=== PATIENT | female | born 1975 | race Caucasian/White ===

== ENCOUNTER → 2016-11-16 | Outpatient (CLI) | payer BC ==
[2016-11-16 20:52] LABS: ALBUMIN 3.9 GM/DL (3.2-5.2); ALBUMIN/GLOBULIN RATIO 1.15 (1.00-1.93); ALKALINE PHOSPHATASE 81 U/L (45-117); ALT/SGPT 38 U/L (12-78); ANION GAP 8 MEQ/L (8-16); AST/SGOT 21 U/L (15-37); BILIRUBIN,TOTAL 0.4 MG/DL (0.2-1.0); BLOOD UREA NITROGEN 12 MG/DL (7-18); CALCIUM LEVEL 8.8 MG/DL (8.5-10.1); CARBON DIOXIDE LEVEL 29 MEQ/L (21-32); CHLORIDE LEVEL 101 MEQ/L (98-107); GLOMERULAR FILTRATION RATE > 60.0 (>58); GLUCOSE, FASTING 135 MG/DL (70-105); POTASSIUM SERUM 3.9 MEQ/L (3.5-5.1); SODIUM LEVEL 138 MEQ/L (136-145); TOTAL PROTEIN 7.3 GM/DL (6.4-8.2)
[2016-11-16 21:05] LABS: BASO % 0.3 % (0.0-1.0); EOS # 0.1 K/mm3 (0.0-0.50); EOS % 1.1 % (0.0-3.0); LARGE UNSTAINED CELL # 0.1 K/mm3 (0.0-0.4); LARGE UNSTAINED CELL % 1.1 % (0.0-4.0); LYMPH # 1.6 K/mm3 (1.5-4.5); LYMPH % 15.5 % (24.0-44.0); MEAN CORPUSCULAR HEMOGLOBIN 28.3 pg (27.0-33.0); MEAN CORPUSCULAR HGB CONC 32.8 g/dl (32.0-36.5); MEAN CORPUSCULAR VOLUME 86.3 fl (80.0-96.0); MONO # 0.5 K/mm3 (0.0-0.8); NEUTROPHILS # 7.5 K/mm3 (1.8-7.7); PLATELET COUNT, AUTOMATED 267 k/mm3 (150-450); RED CELL DISTRIBUTION WIDTH 13.6 % (11.5-14.5); WHITE BLOOD COUNT 9.8 K/mm3 (4.0-10.0)
== END ==
LOC: M LAB 19:47
PROVIDERS: ATTEND Physician Assistant
DX: R42 Dizziness and giddiness (principal)

== ENCOUNTER → 2016-11-17 | Outpatient (CLI) | payer BC ==
--- NOTE | 2016-11-17 16:19 | REP ---
Chest x-ray: Two views. History: Acute upper respiratory infection . Comparison study: No comparison study . Findings: The lungs are well inflated and free of infiltrate. The pleural angles are sharp. The heart size is normal. Pulmonary vasculature is not increased. No significant bony abnormality is seen. Impression: Negative chest x-ray. Signed by Joby Gordon MD 11/17/2016 04:11 P
== END ==
LOC: M ADAMS 14:47
PROVIDERS: ATTEND Family Medicine
DX: J06.9 Acute upper respiratory infection, unspecified (principal)

== ENCOUNTER 2016-11-23 20:37 | Emergency (ER) | payer BC ==
[~2016-11-23] VITALS: Ht 157.5 cm; Wt 99.8 kg
[2016-11-23] MEDS ORDERED: DULO1CAP3 PO (20:48)
[2016-11-23] MEDS ORDERED: CHLO125TA PO (20:48)
[2016-11-23] MEDS ORDERED: RELP40TA PO (20:48)
[2016-11-23] MEDS ORDERED: ZYRT10CA PO (20:48)
--- NOTE | 2016-11-23 21:12 | ECGEPIP ---
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
[2016-11-23] MEDS ORDERED: LABETALOL HCL 100 MG/20 ML VIAL IV STA (21:22)
[2016-11-23] MEDS ORDERED: CHLORTHALIDONE 25 MG TAB PO ONE (21:30)
[2016-11-23] MEDS ORDERED: CHLORTHALIDONE 12.5MG PER 1/2 TABLET PO ONE (21:30)
[2016-11-23 21:52] VITALS: BP 150/101
[2016-11-23 21:56] LABS: BASO % 0.3 % (0.0-1.0); EOS # 0.1 K/mm3 (0.0-0.50); EOS % 0.8 % (0.0-3.0); LARGE UNSTAINED CELL # 0.1 K/mm3 (0.0-0.4); LARGE UNSTAINED CELL % 1.3 % (0.0-4.0); LYMPH # 1.3 K/mm3 (1.5-4.5); LYMPH % 14.2 % (24.0-44.0); MEAN CORPUSCULAR HGB CONC 34.1 g/dl (32.0-36.5); MEAN CORPUSCULAR VOLUME 85.2 fl (80.0-96.0); MONO # 0.4 K/mm3 (0.0-0.8); NEUTROPHILS # 6.6 K/mm3 (1.8-7.7); NEUTROPHILS % 78.4 % (36.0-66.0); PLATELET COUNT, AUTOMATED 271 k/mm3 (150-450); RED CELL DISTRIBUTION WIDTH 13.2 % (11.5-14.5); WHITE BLOOD COUNT 8.4 K/mm3 (4.0-10.0)
[2016-11-23 22:00] LABS: INR 0.97
[2016-11-23] MEDS ORDERED: ONDANSETRON 4MG/2ML VIAL (J2405) IV ONE (22:15)
[2016-11-23 22:21] LABS: ALBUMIN/GLOBULIN RATIO 1.33 (1.00-1.93); ALKALINE PHOSPHATASE 79 U/L (45-117); ALT/SGPT 47 U/L (12-78); ANION GAP 7 MEQ/L (8-16); AST/SGOT 23 U/L (15-37); BILIRUBIN,DIRECT 0.1 MG/DL (0.0-0.2); BILIRUBIN,TOTAL 0.5 MG/DL (0.2-1.0); BLOOD UREA NITROGEN 13 MG/DL (7-18); CALCIUM LEVEL 8.6 MG/DL (8.5-10.1); CARBON DIOXIDE LEVEL 30 MEQ/L (21-32); CHLORIDE LEVEL 104 MEQ/L (98-107); CREATININE FOR GFR 0.87 MG/DL (0.55-1.02); GLOMERULAR FILTRATION RATE > 60.0 (>58); GLUCOSE, FASTING 128 MG/DL (70-105); POTASSIUM SERUM 3.8 MEQ/L (3.5-5.1); SODIUM LEVEL 141 MEQ/L (136-145)
[2016-11-23] MEDS ORDERED: NS 1,000 ML IV SCH (22:54)
[2016-11-23] MEDS ORDERED: ISOVUE-370 76% 100ML VIAL (Q9967) As Ordered ONE (22:59)
[2016-11-23] MEDS ORDERED: ASPIRIN 81 MG CHEW TABLET PO ONE (23:00)
--- NOTE | 2016-11-23 23:20 | REPUSA ---
CT of the head Clinical history: Headache. Technique: Multiple axial CT images were obtained through the head without administration of contrast . Comparison: 02/15/2010. Findings: The ventricles and sulci are symmetric bilaterally. There is no evidence of acute hemorrhag e or infarct. There is no midline shift, mass effect, or extra-axial fluid collection. The osseous st ructures are unremarkable. The visualized paranasal sinuses and mastoid air cells are clear. Impression: Negative study.
--- NOTE | 2016-11-23 23:30 | REPUSA ---
CT angiogram of the chest Clinical statement: Chest pain and shortness of breath. Technique: Multiple axial CT images were obtained from the thoracic inlet through the upper abdomen a fter a bolus administration of nonionic intravenous contrast. Coronal and sagittal reconstructions we re also obtained. No comparison is available. Findings: The pulmonary arteries are well-opacified with contrast, with no intraluminal filling defec ts to suggest embolism. The thoracic aorta is unremarkable. Thyroid gland is within normal limits. Th ere is no thoracic lymphadenopathy. There are no pericardial or pleural effusions. The lungs are junior r. Limited imaging of the upper abdomen does not demonstrate any acute abnormalities. There is diffus e low attenuation in the hepatic parenchyma. There are no suspicious osseous lesions. Impression: Unremarkable CT examination of the chest. No evidence of pulmonary embolism.
[2016-11-24] MEDS ORDERED: ACETAMINOPHEN 325 MG TAB PO ONE (02:45)
[2016-11-24 03:06] VITALS: BP 131/78
--- NOTE | 2016-11-24 05:57 | ECGEPIP ---
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
--- NOTE | 2016-11-24 08:03 | REP ---
Clinical: Chest pain . Comparison: 12/08 . Technique: PA and lateral. Findings: The mediastinum and cardiac silhouette are normal. The lung loco are clear and without acute consolidation, effusion, or pneumothorax. The skeletal structures are intact and normal. Impression: 1. No acute cardiopulmonary process. Signed by Kvng Cole MD 11/24/2016 07:54 A
== END 2016-11-24 04:23 | disposition home or self-care (01) ==
LOC: M ED 21:39
DX: R07.9 Chest pain, unspecified (principal); I10 Essential (primary) hypertension; Q05.9 Spina bifida, unspecified; M54.5 Low back pain; Z79.899 Other long term (current) drug therapy; Z87.891 Personal history of nicotine dependence; Z86.32 Personal history of gestational diabetes
CPT/HCPCS: 36415; 70450; 71020; 71275; 80048; 80076; 82550; 82553; 83690; 83880; 85025; 85610; 85730; 93005; 93041; 94760; 96374; 96375; 99285; J2405; Q9967

== ENCOUNTER → 2017-05-23 | Outpatient (CLI) | payer BC ==
[~2017-05-23] MED LIST: CHLO125TA PO; DULO1CAP3 PO; RELP40TA PO; ZYRT10CA PO
--- NOTE | 2017-05-23 12:12 | REP ---
LEFT KNEE SERIES: Five views. HISTORY: Contusion. FINDINGS: Five views of the left knee demonstrate normal bones, joints, and soft tissues. IMPRESSION: Negative left knee radiographs. Signed by Joby Gordon MD 05/23/2017 05:22 P
== END ==
LOC: M WUC 11:08
PROVIDERS: ATTEND Physician Assistant
DX: S80.02XA Contusion of left knee, initial encounter (principal); W18.30XA Fall on same level, unspecified, initial encounter; Y92.009 Unspecified place in unspecified non-institutional (private) residence as the place of occurrence of the external cause

== ENCOUNTER → 2017-08-01 | Outpatient (CLI) | payer BC ==
--- NOTE | 2017-08-01 16:17 | REP ---
Clinical: Chest pain . Comparison: 11/23/2016 . Technique: PA and lateral. Findings: The mediastinum and cardiac silhouette are normal. The lung loco are clear and without acute consolidation, effusion, or pneumothorax. The skeletal structures are intact and normal. Impression: 1. No acute cardiopulmonary process. Signed by Kvng Cole MD 08/01/2017 04:08 P
== END ==
LOC: M ADAMS 15:13
PROVIDERS: ATTEND Family Medicine
DX: I10 Essential (primary) hypertension (principal); G47.10 Hypersomnia, unspecified; R06.2 Wheezing

== ENCOUNTER → 2017-08-01 | Outpatient (REF) | payer BC ==
[2017-08-01 19:52] LABS: MEAN CORPUSCULAR HGB CONC 32.6 g/dl (32.0-36.5); MEAN CORPUSCULAR VOLUME 85.8 fl (80.0-96.0); PLATELET COUNT, AUTOMATED 306 10^3/uL (150-450); RED CELL DISTRIBUTION WIDTH 13.4 % (11.5-14.5); WHITE BLOOD COUNT 8.5 10^3/uL (4.0-10.0)
[2017-08-01 20:24] LABS: ALBUMIN 3.9 GM/DL (3.2-5.2); ALBUMIN/GLOBULIN RATIO 1.15 (1.00-1.93); BILIRUBIN,TOTAL 0.3 MG/DL (0.2-1.0); CALCIUM LEVEL 9.3 MG/DL (8.5-10.1); CREATININE FOR GFR 1.09 MG/DL (0.55-1.02); FREE T4 0.79 NG/DL (0.76-1.46); GLOMERULAR FILTRATION RATE 58.9 (>58); POTASSIUM SERUM 3.4 MEQ/L (3.5-5.1); TOTAL PROTEIN 7.3 GM/DL (6.4-8.2)
[2017-08-01 20:27] LABS: FOLATE 19.2 NG/ML (>5.4)
== END ==
LOC: M SFHCADAM 15:06
PROVIDERS: ATTEND Family Medicine
DX: G47.10 Hypersomnia, unspecified (principal); E55.9 Vitamin D deficiency, unspecified; I10 Essential (primary) hypertension

== ENCOUNTER 2017-12-21 08:50 | Emergency (ER) | payer BC ==
[2017-12-21] MEDS: diphenhydrAMINE INJ 50MG/ML VIAL (J1200) IV (09:21)
[2017-12-21] MEDS: METOCLOPRAMIDE INJ 10MG/2ML VIAL (J2765) IV (09:30)
[2017-12-21] MEDS: NS 1,000 ML IV (09:30)
[2017-12-21] MEDS: KETOROLAC 30 MG/ML VIAL (J1885) IV (09:30)
[2017-12-21 09:47] LABS: BASO % 0.5 % (0.0-1.0); EOS # 0.1 10^3/uL (0.0-0.50); EOS % 1.5 % (0.0-3.0); HEMATOCRIT 46.6 % (36.0-47.0); HEMOGLOBIN 16.2 g/dl (12.0-15.5); IMMATURE GRANULOCYTE % 0.2 % (0-3.0); LYMPH # 1.5 10^3/uL (1.5-4.5); LYMPH % 16.7 % (24.0-44.0); MEAN CORPUSCULAR HEMOGLOBIN 28.9 pg (27.0-33.0); MEAN CORPUSCULAR HGB CONC 34.8 g/dl (32.0-36.5); MEAN CORPUSCULAR VOLUME 83.1 fl (80.0-96.0); MONO # 0.6 10^3/uL (0.0-0.8); MONO % 6.4 % (0.0-5.0); NEUTROPHILS # 6.6 10^3/uL (1.8-7.7); NEUTROPHILS % 74.7 % (36.0-66.0); PLATELET COUNT, AUTOMATED 314 10^3/uL (150-450); RED BLOOD COUNT 5.61 10^6/uL (4.00-5.40); RED CELL DISTRIBUTION WIDTH 13.6 % (11.5-14.5); WHITE BLOOD COUNT 8.8 10^3/uL (4.0-10.0)
[2017-12-21 10:08] LABS: ANION GAP 9 MEQ/L (8-16); BLOOD UREA NITROGEN 13 MG/DL (7-18); CALCIUM LEVEL 9.3 MG/DL (8.5-10.1); CARBON DIOXIDE LEVEL 26 MEQ/L (21-32); CHLORIDE LEVEL 103 MEQ/L (98-107); CREATININE FOR GFR 1.02 MG/DL (0.55-1.30); GLOMERULAR FILTRATION RATE > 60.0 (>58); GLUCOSE, FASTING 121 MG/DL (70-100); POTASSIUM SERUM 3.4 MEQ/L (3.5-5.1); SODIUM LEVEL 138 MEQ/L (136-145)
[2017-12-21 10:21] LABS: INFLUENZA A AMPLIFICATION NEGATIVE (NEGATIVE); INFLUENZA B AMPLIFICATION NEGATIVE (NEGATIVE)
[2017-12-21] MEDS: ACETAMINOPHEN 325 MG TAB PO (10:30)
[2017-12-21] MEDS: ONDANSETRON 4 MG ORAL DISINTEGRATING TAB (Q0162 PER 1MG) PO (10:30)
== END 2017-12-21 11:24 | disposition home or self-care (01) ==
LOC: M ED 08:50
DX: G44.209 Tension-type headache, unspecified, not intractable (principal); B34.9 Viral infection, unspecified; E11.9 Type 2 diabetes mellitus without complications; I10 Essential (primary) hypertension; G43.709 Chronic migraine without aura, not intractable, without status migrainosus; Z87.891 Personal history of nicotine dependence; Z79.899 Other long term (current) drug therapy
CPT/HCPCS: J1200

== ENCOUNTER → 2018-01-09 | Outpatient (REF) | payer BC ==
[2018-01-09 13:36] LABS: BASO % 0.5 % (0.0-1.0); EOS # 0.2 10^3/uL (0.0-0.50); EOS % 2.7 % (0.0-3.0); HEMATOCRIT 45.2 % (36.0-47.0); IMMATURE GRANULOCYTE % 0.3 % (0-3.0); LYMPH # 1.5 10^3/uL (1.5-4.5); LYMPH % 23.2 % (24.0-44.0); MEAN CORPUSCULAR HEMOGLOBIN 28.5 pg (27.0-33.0); MEAN CORPUSCULAR HGB CONC 33.2 g/dl (32.0-36.5); MEAN CORPUSCULAR VOLUME 85.8 fl (80.0-96.0); MONO # 0.4 10^3/uL (0.0-0.8); NEUTROPHILS # 4.2 10^3/uL (1.8-7.7); NEUTROPHILS % 66.3 % (36.0-66.0); PLATELET COUNT, AUTOMATED 318 10^3/uL (150-450); RED BLOOD COUNT 5.27 10^6/uL (4.00-5.40); RED CELL DISTRIBUTION WIDTH 13.5 % (11.5-14.5); WHITE BLOOD COUNT 6.3 10^3/uL (4.0-10.0)
[2018-01-09 14:05] LABS: ERYTHROCYTE SEDIMENTATION RATE 5 mm/hr (0-20)
[2018-01-09 14:25] LABS: ALBUMIN 4.3 GM/DL (3.2-5.2); ALKALINE PHOSPHATASE 82 U/L (45-117); ALT/SGPT 49 U/L (12-78); ANION GAP 5 MEQ/L (8-16); AST/SGOT 27 U/L (7-37); BILIRUBIN,TOTAL 0.3 MG/DL (0.2-1.0); BLOOD UREA NITROGEN 15 MG/DL (7-18); CALCIUM LEVEL 9.4 MG/DL (8.5-10.1); CARBON DIOXIDE LEVEL 31 MEQ/L (21-32); CHLORIDE LEVEL 102 MEQ/L (98-107); GLOMERULAR FILTRATION RATE > 60.0 (>58); GLUCOSE, FASTING 101 MG/DL (70-100); POTASSIUM SERUM 3.4 MEQ/L (3.5-5.1); RHEUMATOID FACTOR QUANT < 10.0 IU/ML (<15.0); SODIUM LEVEL 138 MEQ/L (136-145); TOTAL PROTEIN 7.6 GM/DL (6.4-8.2)
[2018-01-10 14:15] LABS: ANTINUCLEAR ANTIBODIES DIRECT Negative (Negative)
== END ==
LOC: M LABNEURO 09:45
DX: R51 Headache (principal)
CPT/HCPCS: 84443

== ENCOUNTER → 2018-01-17 | Outpatient (CLI) | payer BC | LOC: M SLEEP 19:29 | DX: G47.30 Sleep apnea, unspecified (principal) | CPT/HCPCS: 95810 ==

== ENCOUNTER → 2018-08-02 | Outpatient (CLI) | payer BC ==
[~2018-08-02] MED LIST changes: -CHLO125TA PO; -DULO1CAP3 PO; +PROHANCE 279.3MG/ML 15ML VIAL (A9576) As Ordered; +PROHANCE 279.3MG/ML 5ML VIAL (A9576) As Ordered; -RELP40TA PO; -ZYRT10CA PO
== END ==
LOC: M RAD 13:45
DX: D21.12 Benign neoplasm of connective and other soft tissue of left upper limb, including shoulder (principal)
CPT/HCPCS: A9576

== ENCOUNTER → 2018-09-12 | Outpatient (REF) | payer BC ==
[~2018-09-12] MED LIST changes: +CBD Oil SL; +CHLO125TA PO; +DULO1CAP3 PO; -PROHANCE 279.3MG/ML 15ML VIAL (A9576) As Ordered; -PROHANCE 279.3MG/ML 5ML VIAL (A9576) As Ordered; +RELP40TA PO; +VITA200016 PO; +VITA50005 PO; +ZYRT10CA PO
[2018-09-12 19:55] LABS: HEMOGLOBIN 15.2 g/dl (12.0-15.5); MEAN CORPUSCULAR HEMOGLOBIN 28.4 pg (27.0-33.0); MEAN CORPUSCULAR HGB CONC 32.3 g/dl (32.0-36.5); MEAN CORPUSCULAR VOLUME 87.9 fl (80.0-96.0); PLATELET COUNT, AUTOMATED 324 10^3/uL (150-450); RED BLOOD COUNT 5.35 10^6/uL (4.00-5.40); WHITE BLOOD COUNT 8.2 10^3/uL (4.0-10.0)
[2018-09-12 20:09] LABS: ALBUMIN 3.9 GM/DL (3.2-5.2); ALT/SGPT 45 U/L (12-78); BILIRUBIN,TOTAL 0.3 MG/DL (0.2-1.0); BLOOD UREA NITROGEN 11 MG/DL (7-18); CALCIUM LEVEL 8.8 MG/DL (8.5-10.1); CARBON DIOXIDE LEVEL 30 MEQ/L (21-32); CHLORIDE LEVEL 101 MEQ/L (98-107); CREATININE FOR GFR 0.77 MG/DL (0.55-1.30); FREE T4 0.87 NG/DL (0.76-1.46); GLOMERULAR FILTRATION RATE > 60.0 (>58); GLUCOSE, FASTING 104 MG/DL (70-100); POTASSIUM SERUM 3.9 MEQ/L (3.5-5.1); SODIUM LEVEL 140 MEQ/L (136-145); TOTAL 25(OH) VITAMIN D 21.1 NG/ML (30.0-100.0); TOTAL PROTEIN 7.6 GM/DL (6.4-8.2)
== END ==
LOC: M SFHCADAM 16:21
PROVIDERS: ATTEND Family Medicine
DX: G43.009 Migraine without aura, not intractable, without status migrainosus (principal); F32.89 Other specified depressive episodes; E55.9 Vitamin D deficiency, unspecified; I10 Essential (primary) hypertension

== ENCOUNTER → 2018-11-02 | Outpatient (REF) | payer BC ==
[~2018-11-02] MED LIST changes: +ADVA115A INH; +MIRE1IUD IU; +PROAAER10 INH; +TOPA50TA8 PO; +VITA100067 PO
== END ==
LOC: M LAB REF 11:27
PROVIDERS: ATTEND Physician Assistant
DX: N39.0 Urinary tract infection, site not specified (principal)

== ENCOUNTER 2018-11-11 06:00 | Day surgery (SDC) | payer BC ==
[~2018-11-11] VITALS: Ht 157.5 cm; Wt 96.6 kg
[~2018-11-11 06:00] MED LIST changes: +LIDOCAINE W/EPINEPHRINE 1% 20ML VIAL As Ordered ONE; +ceFAZolin SOD 1 GM in D5W MINI-BAG PLUS 50 ML IV SCH
[2018-11-11] MEDS ORDERED: IBUP200C25 PO (06:32)
[2018-11-11 06:39] LABS: URINE PREG TEST NEGATIVE (NEGATIVE)
[2018-11-11] MEDS ORDERED: LR 1,000 ML IV ONE (07:00)
[2018-11-11] MEDS ORDERED: PROPOFOL 200 MG/20 ML VIAL As Ordered ONE ×3 (07:08→08:06)
[2018-11-11] MEDS ORDERED: LIDOCAINE 2% INJ 100 MG/5 ML SDV (FOR ANES.) As Ordered ONE (07:08)
[2018-11-11] MEDS ORDERED: fentaNYL 100 MCG/2 ML INJECTION (J3010) As Ordered ONE (07:08)
[2018-11-11] MEDS ORDERED: MIDAZOLAM INJ 2 MG/2 ML VIAL (J2250) As Ordered ONE (07:08)
--- NOTE | 2018-11-11 08:21 | POST-OPPD ---
Postoperative Procedure Note Date Of Procedure: Nov 11, 2018 PREOPERATIVE DIAGNOSIS: Left upper arm mass POSTOPERATIVE DIAGNOSIS: same FINDINGS: left upper arm mass 3x2.5cm PROCEDURE: Excision Left upper arm mass SURGEON: Dr Rogers ANESTHESIA: Local with sedation SPECIMENS: Left upper arm mass ESTIMATED BLOOD LOSS: 2cc REPLACED: none DRAINS: none COMPLICATIONS: none POSTOPERATIVE CONDITION: stable JALEEL ROGERS DO Nov 11, 2018 08:21
[2018-11-11] MEDS ORDERED: ACET30TAB PO (08:23)
[2018-11-11 08:26] VITALS: BP_DIAS 66
[2018-11-11 09:10] VITALS: BP_SYST 115
--- NOTE | 2018-11-12 14:20 | RO ---
DATE OF OPERATION: 11/11/2018 PREOPERATIVE DIAGNOSIS: Left upper arm mass. POSTOPERATIVE DIAGNOSIS: Left upper arm mass. PROCEDURE: Excision left upper arm mass. ATTENDING SURGEON: Lyssa Caballero DO ANESTHESIA: Local with sedation. SPECIMENS: Left upper arm mass. BLOOD LOSS: 2 mL. FINDINGS: Left upper arm mass 3 x 2.5 cm. DESCRIPTION OF PROCEDURE: This is a 43-year-old female who was seen in our office complaining of some fullness and a mass that she was feeling in her left upper arm. The studies do not confirm any masses visible; however, on exam, you could identify a hardening area in deep tissues, which measures about 3 x 2 cm by feel. So, patient was scheduled for exploration of the left upper arm and possible mass removal. Risks and benefits and alternatives discussed with the patient. She is ready to proceed. In preoperative holding area, informed consent was confirmed and the mass was, again, palpated and outlined, and then patient was brought into the operating room, placed in supine position. Sequential stockings placed on the lower calves and preoperative antibiotics were given. She was prepped and draped in the usual sterile fashion. Sedation was given to the patient, and then 1% lidocaine with epinephrine 8 mL was infiltrated in the area. After the local anesthesia had taken place, a vertical incision was carried out and then careful blunt dissection was done until we palpated the mass which looked like a well-encapsulated fatty fibrinous mass, which was white in color, fully encapsulated. We did not invade the mass and just excised it in all entirety. It was sitting right on top of deltoid muscle, not attached to it. The mass was sent to pathology. It was re-measured, and it is 3 x 2.5 cm. The wound was irrigated with bacitracin irrigation. Hemostasis was obtained using electrocautery, and then wound was closed in layers with interrupted #3-0 Vicryl sutures and #4-0 Monocryl sutures as well. The length of the incision was 3 cm in the longest measure. Steri-Strips were applied, 4 x 4 nonocclusive dressing. Patient tolerated procedure well. She was transferred to the recovery room in stable condition. JOSEFINA
== END 2018-11-11 09:13 | disposition home or self-care (01) ==
LOC: M SDC 06:00
PROVIDERS: ATTEND Plastic Surgery Surgery of the Hand
DX: D17.21 Benign lipomatous neoplasm of skin and subcutaneous tissue of right arm (principal); G47.30 Sleep apnea, unspecified; I10 Essential (primary) hypertension; J45.909 Unspecified asthma, uncomplicated; Z79.51 Long term (current) use of inhaled steroids; Z79.899 Other long term (current) drug therapy
CPT/HCPCS: 11404; 84703; 88307; J0690; J2250; J3010

== ENCOUNTER → 2018-11-24 | Outpatient (REF) | payer BC ==
[~2018-11-24] MED LIST changes: +ACET30TAB PO; +IBUP200C25 PO; -LIDOCAINE W/EPINEPHRINE 1% 20ML VIAL As Ordered ONE; -ceFAZolin SOD 1 GM in D5W MINI-BAG PLUS 50 ML IV SCH
== END ==
LOC: M LAB REF 12:48
PROVIDERS: ATTEND Physician Assistant
DX: R30.0 Dysuria (principal)

== ENCOUNTER → 2020-01-16 | Outpatient (CLI) | payer BC ==
[~2020-01-16] MED LIST changes: +ACET-716 PO; -ACET30TAB PO; -DULO1CAP3 PO; +DULO1CAP6 PO
[2020-01-16 15:46] LABS: HEMOGLOBIN 15.5 g/dl (12.0-15.5); MEAN CORPUSCULAR HEMOGLOBIN 28.6 pg (27.0-33.0); MEAN CORPUSCULAR HGB CONC 33.7 g/dl (32.0-36.5); MEAN CORPUSCULAR VOLUME 84.9 fl (80.0-96.0); PLATELET COUNT, AUTOMATED 299 10^3/uL (150-450); RED BLOOD COUNT 5.42 10^6/uL (4.00-5.40); WHITE BLOOD COUNT 7.3 10^3/uL (4.0-10.0)
[2020-01-16 16:09] LABS: HEMOGLOBIN A1c 10.5 %
[2020-01-16 16:18] LABS: ACETONE/KETONE 3.37 MG/DL (<2.81); ALT/SGPT 135 U/L (12-78); BILIRUBIN,TOTAL 0.7 MG/DL (0.2-1.0); BLOOD UREA NITROGEN 11 MG/DL (7-18); CALCIUM LEVEL 9.3 MG/DL (8.5-10.1); CARBON DIOXIDE LEVEL 28 MEQ/L (21-32); CHLORIDE LEVEL 96 MEQ/L (98-107); CREATININE FOR GFR 0.89 MG/DL (0.55-1.30); GLOMERULAR FILTRATION RATE > 60.0 (>58); GLUCOSE, FASTING 289 MG/DL (70-100); POTASSIUM SERUM 3.6 MEQ/L (3.5-5.1); SODIUM LEVEL 132 MEQ/L (136-145); TOTAL PROTEIN 7.7 GM/DL (6.4-8.2)
[2020-01-24 08:06] LABS: C-PEPTIDE 5.8 ng/mL (1.1-4.4); INSULIN ANTIBODY <5.0 uU/mL (.)
== END ==
LOC: M LAB 15:11
PROVIDERS: ATTEND Family Medicine
DX: R73.9 Hyperglycemia, unspecified (principal); R53.83 Other fatigue

== ENCOUNTER → 2020-07-08 | Outpatient (REF) | payer OTHER ==
[2020-07-08 17:48] LABS: ALBUMIN 3.8 GM/DL (3.2-5.2); BILIRUBIN,TOTAL 0.4 MG/DL (0.2-1.0); CALCIUM LEVEL 9.5 MG/DL (8.5-10.1); CREATININE FOR GFR 1.28 MG/DL (0.55-1.30); GLOMERULAR FILTRATION RATE 48.2 (>58); HEMOGLOBIN A1c 5.7 %; POTASSIUM SERUM 3.5 MEQ/L (3.5-5.1); TOTAL PROTEIN 7.2 GM/DL (6.4-8.2)
[2020-07-08 17:55] LABS: MALB URINE SIEMENS 6.7 MG/L; MAU/CREAT RATIO 3.8 MCG/MG (0.0-30.0)
[2020-07-08 17:56] LABS: TOTAL 25(OH) VITAMIN D 44.2 NG/ML (30.0-100.0)
== END ==
LOC: M SFHCADAM 13:30
PROVIDERS: ATTEND Family Medicine
DX: E11.65 Type 2 diabetes mellitus with hyperglycemia (principal); E55.9 Vitamin D deficiency, unspecified

== ENCOUNTER → 2021-02-03 | Outpatient (CLI) | payer OTHER ==
--- NOTE | 2021-02-03 09:56 | REP ---
INDICATION: RADICULOPATHY COMPARISON: 08/10/2014 TECHNIQUE: AP, lateral, bilateral oblique, and coned-down views of the lumbar spine. FINDINGS: Alignment and lordosis maintained. Vertebral bodies are intact. Incidental limbus vertebra at L4 again noted. Disc spaces are relatively normal/age-appropriate. No acute fracture/compression injury or subluxation. No obvious spondylolysis or spondylolisthesis.. IMPRESSION: Essentially normal age-appropriate lumbosacral spine series. <Electronically signed by Kvng Cole > 02/03/21 [id number]
== END ==
LOC: M WUC 09:15
PROVIDERS: ATTEND Physician Assistant
DX: M54.16 Radiculopathy, lumbar region (principal)

== ENCOUNTER → 2021-03-31 | Outpatient (CLI) | payer OTHER ==
[2021-03-31 17:34] LABS: BASO # 0.1 10^3/uL (0.0-0.2); BASO % 0.7 % (0.0-1.0); EOS # 0.3 10^3/uL (0.0-0.5); EOS % 3.3 % (0.0-3.0); HEMATOCRIT 43.7 % (36.0-47.0); HEMOGLOBIN 14.3 g/dl (12.0-15.5); LYMPH # 2.1 10^3/uL (1.5-5.0); LYMPH % 25.7 % (24.0-44.0); MEAN CORPUSCULAR HEMOGLOBIN 28.2 pg (27.0-33.0); MEAN CORPUSCULAR HGB CONC 32.7 g/dl (32.0-36.5); MEAN CORPUSCULAR VOLUME 86.2 fl (80.0-96.0); MONO # 0.6 10^3/uL (0.0-0.8); MONO % 6.8 % (2.0-8.0); NEUTROPHILS # 5.1 10^3/uL (1.5-8.5); NEUTROPHILS % 63.1 % (36.0-66.0); PLATELET COUNT, AUTOMATED 332 10^3/uL (150-450); RED BLOOD COUNT 5.07 10^6/uL (4.00-5.40); WHITE BLOOD COUNT 8.1 10^3/uL (4.0-10.0)
[2021-03-31 18:11] LABS: ALT/SGPT 31 U/L (12-78); BILIRUBIN,TOTAL 0.4 MG/DL (0.2-1.0); BLOOD UREA NITROGEN 15 MG/DL (7-18); C REACTIVE PROTEIN QUANTITATIV 1.45 MG/DL (0.00-0.30); CALCIUM LEVEL 9.3 MG/DL (8.5-10.1); CARBON DIOXIDE LEVEL 32 MEQ/L (21-32); CHLORIDE LEVEL 103 MEQ/L (98-107); CREATININE FOR GFR 0.99 MG/DL (0.55-1.30); GLOMERULAR FILTRATION RATE > 60.0 (>58); GLUCOSE, FASTING 140 MG/DL (70-100); POTASSIUM SERUM 3.2 MEQ/L (3.5-5.1); SODIUM LEVEL 139 MEQ/L (136-145)
[2021-03-31 19:21] LABS: ERYTHROCYTE SEDIMENTATION RATE 21 mm/hr (0-20)
== END ==
LOC: M PLALAB 15:39
PROVIDERS: ATTEND Physician Assistant
DX: R22.2 Localized swelling, mass and lump, trunk (principal)

== ENCOUNTER → 2021-04-18 | Outpatient (CLI) | payer OTHER ==
[2021-04-18 10:28] LABS: ALBUMIN 3.9 GM/DL (3.2-5.2); BLOOD UREA NITROGEN 15 MG/DL (7-18); CALCIUM LEVEL 9.2 MG/DL (8.5-10.1); CARBON DIOXIDE LEVEL 30 MEQ/L (21-32); CHLORIDE LEVEL 104 MEQ/L (98-107); CREATININE FOR GFR 0.99 MG/DL (0.55-1.30); GLOMERULAR FILTRATION RATE > 60.0 (>58); GLUCOSE, FASTING 107 MG/DL (70-100); PHOSPHORUS LEVEL 3.1 MG/DL (2.5-4.9); POTASSIUM SERUM 3.1 MEQ/L (3.5-5.1); SODIUM LEVEL 139 MEQ/L (136-145)
[2021-04-18 11:03] LABS: HEMOGLOBIN A1c 6.5 %
== END ==
LOC: M WUC 08:35
PROVIDERS: ATTEND Physician Assistant
DX: E11.9 Type 2 diabetes mellitus without complications (principal); E87.6 Hypokalemia

== ENCOUNTER → 2021-04-19 | Outpatient (CLI) | payer OTHER ==
--- NOTE | 2021-04-19 08:46 | REP ---
INDICATION: LOCALIZED SWELLING, MASS AND LUMP, TRUNK COMPARISON: None. TECHNIQUE: Directed grayscale B-mode ultrasound examination using linear high-frequency transducer. FINDINGS: Directed ultrasound examination of the left and right supraclavicular region demonstrates normal soft tissue structures. No obvious mass lesion, abnormality, or fluid collection noted by ultrasound. IMPRESSION: Unremarkable examination. <Electronically signed by Kvng Cole > 04/19/21 0884
== END ==
LOC: M RAD 07:30
PROVIDERS: ATTEND Physician Assistant
DX: R22.2 Localized swelling, mass and lump, trunk (principal)

== ENCOUNTER → 2021-04-25 | Outpatient (REF) | payer OTHER | LOC: M SFHCPLAZ 10:07 | PROVIDERS: ATTEND Physician Assistant Medical | DX: N90.89 Other specified noninflammatory disorders of vulva and perineum (principal) ==

== ENCOUNTER → 2021-07-08 | Outpatient (REF) | payer OTHER ==
[2021-07-08 12:55] LABS: BLOOD UREA NITROGEN 17 MG/DL (7-18); CALCIUM LEVEL 9.2 MG/DL (8.5-10.1); CARBON DIOXIDE LEVEL 31 MEQ/L (21-32); CHLORIDE LEVEL 105 MEQ/L (98-107); CREATININE FOR GFR 0.96 MG/DL (0.55-1.30); GLOMERULAR FILTRATION RATE > 60.0 (>58); GLUCOSE, FASTING 164 MG/DL (70-100); POTASSIUM SERUM 3.4 MEQ/L (3.5-5.1); SODIUM LEVEL 141 MEQ/L (136-145)
[2021-07-08 13:04] LABS: TOTAL 25(OH) VITAMIN D 68.3 NG/ML (30.0-100.0)
[2021-07-08 13:29] LABS: MALB URINE SIEMENS 7.5 MG/L; MAU/CREAT RATIO 4.6 MCG/MG (0.0-30.0)
[2021-07-08 13:36] LABS: HEMOGLOBIN A1c 5.9 %
== END ==
LOC: M SFHCADAM 09:12
PROVIDERS: ATTEND Family Medicine
DX: E87.6 Hypokalemia (principal); E55.9 Vitamin D deficiency, unspecified; E11.9 Type 2 diabetes mellitus without complications

== ENCOUNTER → 2021-08-31 | Outpatient (REF) | payer OTHER | LOC: M SFHCPLAZ 16:43 | PROVIDERS: ATTEND Physician Assistant | DX: R50.9 Fever, unspecified (principal) ==

== ENCOUNTER 2021-09-29 09:51 | Emergency (ER) | payer OTHER ==
[~2021-09-29] VITALS: Ht 162.6 cm; Wt 91.7 kg
[2021-09-29 09:52] VITALS: BP 143/96
[2021-09-29] MEDS ORDERED: DULA3PEN (09:58)
[2021-09-29] MEDS ORDERED: NS 1,000 ML IV ONE (14:55)
[2021-09-29] MEDS ORDERED: ONDANSETRON 4MG/2ML VIAL IV ONE (14:55)
[2021-09-29 16:23] LABS: BASO % 0.4 % (0.0-1.0); EOS # 0.3 10^3/uL (0.0-0.5); EOS % 3.3 % (0.0-3.0); HEMATOCRIT 44.7 % (36.0-47.0); HEMOGLOBIN 14.7 g/dl (12.0-15.5); LYMPH # 1.7 10^3/uL (1.5-5.0); LYMPH % 21.1 % (24.0-44.0); MEAN CORPUSCULAR HEMOGLOBIN 27.8 pg (27.0-33.0); MEAN CORPUSCULAR HGB CONC 32.9 g/dl (32.0-36.5); MEAN CORPUSCULAR VOLUME 84.5 fl (80.0-96.0); MONO # 0.6 10^3/uL (0.0-0.8); MONO % 6.9 % (2.0-8.0); NEUTROPHILS # 5.4 10^3/uL (1.5-8.5); NEUTROPHILS % 67.9 % (36.0-66.0); PLATELET COUNT, AUTOMATED 364 10^3/uL (150-450); RED BLOOD COUNT 5.29 10^6/uL (4.00-5.40)
[2021-09-29 16:54] LABS: ALBUMIN 3.6 GM/DL (3.2-5.2); ALT/SGPT 24 U/L (12-78); BILIRUBIN,DIRECT 0.1 MG/DL (0.0-0.2); BILIRUBIN,TOTAL 0.3 MG/DL (0.2-1.0); BLOOD UREA NITROGEN 12 MG/DL (7-18); CALCIUM LEVEL 9.2 MG/DL (8.5-10.1); CARBON DIOXIDE LEVEL 29 MEQ/L (21-32); CHLORIDE LEVEL 104 MEQ/L (98-107); CREATININE FOR GFR 0.83 MG/DL (0.55-1.30); GLOMERULAR FILTRATION RATE > 60.0 (>58); GLUCOSE, FASTING 108 MG/DL (70-100); HCG, SERUM QUALITATIVE NEGATIVE (NEGATIVE); LIPASE 208 U/L (73-393); POTASSIUM SERUM 3.4 MEQ/L (3.5-5.1); SODIUM LEVEL 138 MEQ/L (136-145); TOTAL PROTEIN 6.7 GM/DL (6.4-8.2)
[2021-09-29] MEDS ORDERED: ONDA4TAB6 PO (17:26)
[2021-09-29 18:27] LABS: GC DNA AMPLIFICATION NEGATIVE (NEGATIVE)
== END 2021-09-29 17:00 | disposition home or self-care (01) ==
LOC: M ED 09:51
DX: N93.8 Other specified abnormal uterine and vaginal bleeding (principal); R11.2 Nausea with vomiting, unspecified; D25.9 Leiomyoma of uterus, unspecified; E11.9 Type 2 diabetes mellitus without complications; I10 Essential (primary) hypertension; Z79.899 Other long term (current) drug therapy
CPT/HCPCS: 76830; 76856; 80048; 80076; 81001; 83690; 84703; 85025; 87086; 87210; 87808; 87810; 87850; 93976; 96361; 96374; 99283; J2405

== ENCOUNTER → 2022-03-28 | Outpatient (REF) | payer OTHER ==
[~2022-03-28] MED LIST changes: +DULA3PEN; +ONDA4TAB6 PO
[2022-03-28 14:02] LABS: ALBUMIN 3.5 GM/DL (3.2-5.2); ALT/SGPT 32 U/L (12-78); BILIRUBIN,TOTAL 0.6 MG/DL (0.2-1.0); BLOOD UREA NITROGEN 14 MG/DL (7-18); CALCIUM LEVEL 8.8 MG/DL (8.5-10.1); CARBON DIOXIDE LEVEL 26 MEQ/L (21-32); CHLORIDE LEVEL 104 MEQ/L (98-107); CHOLESTEROL LEVEL 145 MG/DL (<200); CREATININE FOR GFR 0.97 MG/DL (0.55-1.30); GLOMERULAR FILTRATION RATE > 60.0 (>58); GLUCOSE, FASTING 199 MG/DL (70-100); HDL CHOLESTEROL 50 MG/DL (>40); LDL CHOLESTEROL 79 MG/DL (<100); NON-HDL-C 95 MG/DL; POTASSIUM SERUM 3.3 MEQ/L (3.5-5.1); SODIUM LEVEL 137 MEQ/L (136-145); TOTAL PROTEIN 6.4 GM/DL (6.4-8.2); TRIGLYCERIDES LEVEL 79 MG/DL (<150)
[2022-03-28 14:05] LABS: HEMOGLOBIN A1c 7.3 %
== END ==
LOC: M SFHCADAM 07:58
PROVIDERS: ATTEND Family Medicine
DX: E11.9 Type 2 diabetes mellitus without complications (principal)

== ENCOUNTER → 2022-05-01 | Outpatient (CLI) | payer OTHER | LOC: M WUC 13:33 | PROVIDERS: ATTEND Physician Assistant | DX: M25.562 Pain in left knee (principal) ==

== ENCOUNTER → 2022-05-09 | Outpatient (REF) | payer OTHER ==
[2022-05-09 17:02] LABS: BASO # 0.1 10^3/uL (0.0-0.2); BASO % 0.7 % (0.0-1.0); EOS # 0.3 10^3/uL (0.0-0.5); EOS % 3.6 % (0.0-3.0); HEMATOCRIT 42.6 % (36.0-47.0); LYMPH # 1.9 10^3/uL (1.5-5.0); MEAN CORPUSCULAR HEMOGLOBIN 28.4 pg (27.0-33.0); MEAN CORPUSCULAR HGB CONC 32.9 g/dl (32.0-36.5); MEAN CORPUSCULAR VOLUME 86.4 fl (80.0-96.0); MONO # 0.5 10^3/uL (0.0-0.8); MONO % 7.7 % (2.0-8.0); NEUTROPHILS # 4.3 10^3/uL (1.5-8.5); NEUTROPHILS % 60.7 % (36.0-66.0); PLATELET COUNT, AUTOMATED 285 10^3/uL (150-450); RED BLOOD COUNT 4.93 10^6/uL (4.00-5.40)
[2022-05-09 18:48] LABS: ALBUMIN 3.7 GM/DL (3.2-5.2); BILIRUBIN,TOTAL 0.3 MG/DL (0.2-1.0); C REACTIVE PROTEIN QUANTITATIV 0.91 MG/DL (0.00-0.30); CALCIUM LEVEL 9.2 MG/DL (8.5-10.1); CREATININE FOR GFR 1.06 MG/DL (0.55-1.30); FREE T4 0.73 NG/DL (0.76-1.46); GLOMERULAR FILTRATION RATE 59.4 (>58); POTASSIUM SERUM 3.3 MEQ/L (3.5-5.1); THYROID STIMULATING HORMONE 2.04 uIU/ML (0.358-3.740); TOTAL PROTEIN 6.5 GM/DL (6.4-8.2)
[2022-05-09 19:19] LABS: FOLATE 8.4 NG/ML
== END ==
LOC: M SFHCADAM 14:27
PROVIDERS: ATTEND Physician Assistant
DX: M79.10 Myalgia, unspecified site (principal); R20.2 Paresthesia of skin; R53.83 Other fatigue

== ENCOUNTER → 2022-05-12 | Outpatient (CLI) | payer OTHER | LOC: M ADAMS 08:07 | PROVIDERS: ATTEND Physician Assistant | DX: R20.2 Paresthesia of skin (principal) ==

== ENCOUNTER → 2022-06-14 | Outpatient (REF) | payer OTHER ==
[2022-06-14 13:53] LABS: BLOOD UREA NITROGEN 12 MG/DL (7-18); C REACTIVE PROTEIN QUANTITATIV 1.15 MG/DL (0.00-0.30); CALCIUM LEVEL 9.5 MG/DL (8.5-10.1); CARBON DIOXIDE LEVEL 29 MEQ/L (21-32); CHLORIDE LEVEL 102 MEQ/L (98-107); CREATININE FOR GFR 0.96 MG/DL (0.55-1.30); GLOMERULAR FILTRATION RATE > 60.0 (>58); GLUCOSE, FASTING 115 MG/DL (70-100); HEMOGLOBIN A1c 7.5 %; MAGNESIUM LEVEL 2.1 MG/DL (1.8-2.4); POTASSIUM SERUM 3.3 MEQ/L (3.5-5.1); RHEUMATOID FACTOR QUANT < 10.0 IU/ML (<15.0); SODIUM LEVEL 138 MEQ/L (136-145)
[2022-06-14 14:31] LABS: TOTAL 25(OH) VITAMIN D 26.4 NG/ML (30.0-100.0)
[2022-06-16 00:07] LABS: ANA (HEP2) Negative (.); CYCLIC CITRULLINATED PEPTIDE 4 units (0-19)
== END ==
LOC: M SFHCADAM 11:17
PROVIDERS: ATTEND Family Medicine
DX: E87.6 Hypokalemia (principal); R79.82 Elevated C-reactive protein (CRP); E11.9 Type 2 diabetes mellitus without complications; E55.9 Vitamin D deficiency, unspecified; M79.10 Myalgia, unspecified site

== ENCOUNTER → 2022-07-20 | Outpatient (CLI) | payer OTHER | LOC: M SOG 08:08 | PROVIDERS: ATTEND Orthopaedic Surgery Adult Reconstructive Orthopaedic Surgery | DX: M25.862 Other specified joint disorders, left knee (principal); M25.861 Other specified joint disorders, right knee; M25.762 Osteophyte, left knee; M25.761 Osteophyte, right knee ==

== ENCOUNTER → 2022-09-13 | Outpatient (REF) | payer OTHER ==
[2022-09-13 16:24] LABS: BASO % 0.4 % (0.0-1.0); EOS # 0.3 10^3/uL (0.0-0.5); EOS % 4.4 % (0.0-3.0); HEMATOCRIT 45.5 % (36.0-47.0); HEMOGLOBIN 14.5 g/dl (12.0-15.5); LYMPH # 1.5 10^3/uL (1.5-5.0); LYMPH % 21.9 % (24.0-44.0); MEAN CORPUSCULAR HEMOGLOBIN 28.5 pg (27.0-33.0); MEAN CORPUSCULAR HGB CONC 31.9 g/dl (32.0-36.5); MEAN CORPUSCULAR VOLUME 89.4 fl (80.0-96.0); MONO # 0.5 10^3/uL (0.0-0.8); MONO % 6.8 % (2.0-8.0); NEUTROPHILS # 4.5 10^3/uL (1.5-8.5); NEUTROPHILS % 66.1 % (36.0-66.0); PLATELET COUNT, AUTOMATED 277 10^3/uL (150-450); RED BLOOD COUNT 5.09 10^6/uL (4.00-5.40); WHITE BLOOD COUNT 6.8 10^3/uL (4.0-10.0)
[2022-09-13 16:47] LABS: HEMOGLOBIN A1c 8.7 % (4.0-6.0)
[2022-09-13 16:51] LABS: ALBUMIN 3.7 G/DL (3.2-5.2); ALKALINE PHOSPHATASE 79 U/L (46-116); ALT/SGPT 39 U/L (7.0-40); AST/SGOT 25 U/L (<34); BILIRUBIN,TOTAL 0.4 MG/DL (0.3-1.2); BLOOD UREA NITROGEN 15 MG/DL (9-23); CALCIUM LEVEL 9.3 MG/DL (8.5-10.1); CARBON DIOXIDE LEVEL 29 MMOL/L (20-31); CHLORIDE LEVEL 101 MMOL/L (98-107); CREATININE FOR GFR 0.81 MG/DL (0.55-1.30); GLOMERULAR FILTRATION RATE > 60.0 (>58); GLUCOSE, FASTING 332 MG/DL (60-100); POTASSIUM SERUM 4.2 MMOL/L (3.5-5.1); SODIUM LEVEL 137 MMOL/L (136-145); TOTAL PROTEIN 6.6 G/DL (5.7-8.2)
[2022-09-13 16:55] LABS: FREE T4 0.81 NG/DL (0.89-1.76)
[2022-09-13 16:56] LABS: THYROID STIMULATING HORMONE 3.956 uIU/ML (0.55-4.78)
[2022-09-14 14:42] LABS: TOTAL 25(OH) VITAMIN D 26.1 NG/ML (20.0-100.0)
== END ==
LOC: M SFHCADAM 11:22
PROVIDERS: ATTEND Physician Assistant
DX: E11.9 Type 2 diabetes mellitus without complications (principal); I10 Essential (primary) hypertension; R79.82 Elevated C-reactive protein (CRP); R53.83 Other fatigue; R30.0 Dysuria

== ENCOUNTER → 2022-10-11 | Outpatient (CLI) | payer OTHER | LOC: M SLEEP HO 11:41 | PROVIDERS: ATTEND Physician Assistant | DX: G47.9 Sleep disorder, unspecified (principal); R53.83 Other fatigue; E66.9 Obesity, unspecified ==

== ENCOUNTER → 2022-11-03 | Outpatient (CLI) | payer OTHER | LOC: M PLARAD 09:49 | PROVIDERS: ATTEND Orthopaedic Surgery Adult Reconstructive Orthopaedic Surgery | DX: M22.2X2 Patellofemoral disorders, left knee (principal) ==

== ENCOUNTER → 2022-11-28 | Outpatient (REF) | payer OTHER ==
[2022-11-28 17:46] LABS: BLOOD UREA NITROGEN 17 MG/DL (9-23); CALCIUM LEVEL 9.2 MG/DL (8.5-10.1); CARBON DIOXIDE LEVEL 29 MMOL/L (20-31); CHLORIDE LEVEL 104 MMOL/L (98-107); CREATININE FOR GFR 0.87 MG/DL (0.55-1.30); GLOMERULAR FILTRATION RATE > 60.0 (>58); GLUCOSE, FASTING 99 MG/DL (60-100); POTASSIUM SERUM 3.8 MMOL/L (3.5-5.1); SODIUM LEVEL 139 MMOL/L (136-145)
[2022-11-28 17:55] LABS: HEMOGLOBIN A1c 6.9 % (4.0-6.0)
== END ==
LOC: M SFHCADAM 12:35
PROVIDERS: ATTEND Family Medicine
DX: E11.65 Type 2 diabetes mellitus with hyperglycemia (principal)

== ENCOUNTER → 2023-02-13 | Outpatient (REF) | payer OTHER ==
[2023-02-13 13:58] LABS: HEMOGLOBIN A1c 5.9 % (4.0-6.0)
[2023-02-13 14:00] LABS: BLOOD UREA NITROGEN 15 MG/DL (9-23); CALCIUM LEVEL 8.9 MG/DL (8.5-10.1); CARBON DIOXIDE LEVEL 28 MMOL/L (20-31); CHLORIDE LEVEL 103 MMOL/L (98-107); CREATININE FOR GFR 0.95 MG/DL (0.55-1.30); GLOMERULAR FILTRATION RATE > 60.0 (>58); GLUCOSE, FASTING 81 MG/DL (60-100); POTASSIUM SERUM 3.3 MMOL/L (3.5-5.1); SODIUM LEVEL 139 MMOL/L (136-145)
== END ==
LOC: M SFHCADAM 10:23
PROVIDERS: ATTEND Family Medicine
DX: E11.65 Type 2 diabetes mellitus with hyperglycemia (principal)

== ENCOUNTER → 2023-03-29 | Outpatient (REF) | payer OTHER | LOC: M SFHCDERM 15:21 | PROVIDERS: ATTEND Physician Assistant | DX: C44.202 Unspecified malignant neoplasm of skin of right ear and external auricular canal (principal) ==

== ENCOUNTER → 2023-07-03 | Outpatient (CLI) | payer OTHER ==
[2023-07-03 10:58] LABS: HEMATOCRIT 43.9 % (36.0-47.0); HEMOGLOBIN 14.6 g/dl (12.0-15.5); MEAN CORPUSCULAR HEMOGLOBIN 28.4 pg (27.0-33.0); MEAN CORPUSCULAR HGB CONC 33.3 g/dl (32.0-36.5); MEAN CORPUSCULAR VOLUME 85.4 fl (80.0-96.0); PLATELET COUNT, AUTOMATED 272 10^3/uL (150-450); RED BLOOD COUNT 5.14 10^6/uL (4.00-5.40)
[2023-07-03 11:12] LABS: URIC ACID 5.6 MG/DL (3.1-7.8)
[2023-07-03 11:15] LABS: ALBUMIN 3.9 G/DL (3.2-5.2); ALKALINE PHOSPHATASE 63 U/L (46-116); ALT/SGPT 19 U/L (7.0-40); AST/SGOT 16 U/L (<34); BILIRUBIN,TOTAL 0.6 MG/DL (0.3-1.2); BLOOD UREA NITROGEN 14 MG/DL (9-23); CALCIUM LEVEL 9.1 MG/DL (8.5-10.1); CARBON DIOXIDE LEVEL 29 MMOL/L (20-31); CHLORIDE LEVEL 100 MMOL/L (98-107); CREATININE FOR GFR 0.87 MG/DL (0.55-1.30); FREE T4 0.84 NG/DL (0.89-1.76); GLOMERULAR FILTRATION RATE > 60.0 (>58); GLUCOSE, FASTING 113 MG/DL (60-100); POTASSIUM SERUM 3.3 MMOL/L (3.5-5.1); RHEUMATOID FACTOR QUANT < 3.5 IU/ML (<14); SODIUM LEVEL 137 MMOL/L (136-145); THYROID STIMULATING HORMONE 2.461 uIU/ML (0.55-4.78); TOTAL PROTEIN 6.5 G/DL (5.7-8.2)
[2023-07-03 11:16] LABS: FOLATE 9.29 NG/ML (>5.4); TOTAL 25(OH) VITAMIN D 30.7 NG/ML (20.0-100.0)
[2023-07-03 11:17] LABS: VITAMIN B12 LEVEL 705 PG/ML (211-911)
[2023-07-03 11:27] LABS: HEMOGLOBIN A1c 5.7 % (4.0-6.0)
[2023-07-04 20:12] LABS: ANA (HEP2) Negative (.); CYCLIC CITRULLINATED PEPTIDE 3 units (0-19)
== END ==
LOC: M WUC 08:07
PROVIDERS: ATTEND Family Medicine
DX: G89.29 Other chronic pain (principal); R79.82 Elevated C-reactive protein (CRP); G47.33 Obstructive sleep apnea (adult) (pediatric)

== ENCOUNTER → 2023-07-10 | Outpatient (REF) | payer OTHER | LOC: M SFHCADAM 12:49 | PROVIDERS: ATTEND Physician Assistant | DX: J00 Acute nasopharyngitis [common cold] (principal) ==

== ENCOUNTER 2023-08-31 08:48 | Day surgery (SDC) | payer OTHER ==
[~2023-08-31] VITALS: Ht 157.5 cm; Wt 88.9 kg
[~2023-08-31 08:48] MED LIST changes: +ACETAMINOPHEN 1000MG 100ML IV BAG As Ordered ONE; +GNPTAB36 PO; +LIDOCAINE 2% 100MG/5ML SDV (FOR ANES.) As Ordered ONE; +MIDAZOLAM INJ 2MG/2ML VIAL As Ordered ONE; +ONDANSETRON 4MG 2ML VIAL As Ordered ONE; +VICT18IN2 SQ; +fentaNYL 100 MCG/2 ML INJECTION As Ordered ONE; +propofoL 200 MG/20 ML VIAL As Ordered ONE
[2023-08-31] MEDS ORDERED: GLUCAGON INJ 1MG VIAL SC PRN (09:00)
[2023-08-31] MEDS ORDERED: INSULIN LISPRO (NovoLOG) PER UNIT SC PRN (09:00)
[2023-08-31] MEDS ORDERED: LR 1,000 ML IV SCH ×2 (09:00→10:20)
[2023-08-31] MEDS ORDERED: GLUCOSE 4GM CHEW TABLET PO PRN (09:00)
[2023-08-31] MEDS ORDERED: DEXTROSE 50% 50ML SYRINGE IV PRN (09:00)
[2023-08-31] MEDS ORDERED: propofoL 200 MG/20 ML VIAL As Ordered ONE (09:43)
[2023-08-31] MEDS ORDERED: ONDANSETRON 4MG 2ML VIAL As Ordered ONE (09:43)
[2023-08-31] MEDS ORDERED: LIDOCAINE 2% 100MG/5ML SDV (FOR ANES.) As Ordered ONE (09:43)
[2023-08-31] MEDS ORDERED: oxyCODONE 5MG TAB PO PRN (10:20)
[2023-08-31] MEDS ORDERED: METOCLOPRAMIDE INJ 10MG/2ML VIAL IV PRN (10:20)
[2023-08-31] MEDS ORDERED: fentaNYL 100 MCG/2 ML INJECTION IV PRN (10:20)
[2023-08-31] MEDS ORDERED: ONDANSETRON 4MG 2ML VIAL IV PRN (10:20)
[2023-08-31 11:30] VITALS: BP 123/80; TEMP 98.2; O2SAT 99
== END 2023-08-31 11:33 | disposition home or self-care (01) ==
LOC: M SDC 08:48
PROVIDERS: ATTEND Orthopaedic Surgery Hand Surgery
DX: G56.01 Carpal tunnel syndrome, right upper limb (principal); E11.9 Type 2 diabetes mellitus without complications; G47.30 Sleep apnea, unspecified; I10 Essential (primary) hypertension; G43.909 Migraine, unspecified, not intractable, without status migrainosus; Z79.899 Other long term (current) drug therapy; Z79.85 Long-term (current) use of injectable non-insulin antidiabetic drugs
CPT/HCPCS: 29848; 81025; J0131; J0665; J1100; J2250; J2405; J2765; J3010

== ENCOUNTER 2023-09-25 09:28 | Day surgery (SDC) | payer OTHER ==
[~2023-09-25] VITALS: Ht 157.5 cm; Wt 90.5 kg
[~2023-09-25 09:28] MED LIST changes: -ACETAMINOPHEN 1000MG 100ML IV BAG As Ordered ONE; -LIDOCAINE 2% 100MG/5ML SDV (FOR ANES.) As Ordered ONE; -MIDAZOLAM INJ 2MG/2ML VIAL As Ordered ONE; -ONDANSETRON 4MG 2ML VIAL As Ordered ONE; -fentaNYL 100 MCG/2 ML INJECTION As Ordered ONE; -propofoL 200 MG/20 ML VIAL As Ordered ONE
[2023-09-25] MEDS ORDERED: GLUCOSE 4GM CHEW TABLET PO PRN (10:25)
[2023-09-25] MEDS ORDERED: DEXTROSE 50% 50ML SYRINGE IV PRN (10:25)
[2023-09-25] MEDS ORDERED: LR 1,000 ML IV SCH ×2 (10:25→11:55)
[2023-09-25] MEDS ORDERED: GLUCAGON INJ 1MG VIAL SC PRN (10:25)
[2023-09-25] MEDS ORDERED: INSULIN LISPRO (NovoLOG) PER UNIT SC PRN (10:25)
[2023-09-25] MEDS ORDERED: ACETAMINOPHEN 1000MG 100ML IV BAG As Ordered ONE (11:30)
[2023-09-25] MEDS ORDERED: METOCLOPRAMIDE INJ 10MG/2ML VIAL As Ordered ONE (11:30)
[2023-09-25] MEDS ORDERED: KETOROLAC 60MG 2ML VIAL As Ordered ONE (11:30)
[2023-09-25] MEDS ORDERED: fentaNYL 100 MCG/2 ML INJECTION As Ordered ONE (11:30)
[2023-09-25] MEDS ORDERED: ONDANSETRON 4MG 2ML VIAL As Ordered ONE (11:30)
[2023-09-25] MEDS ORDERED: MIDAZOLAM INJ 2MG/2ML VIAL As Ordered ONE (11:30)
[2023-09-25] MEDS ORDERED: LIDOCAINE 2% 100MG/5ML SDV (FOR ANES.) As Ordered ONE (11:30)
[2023-09-25] MEDS ORDERED: propofoL 200 MG/20 ML VIAL As Ordered ONE (11:30)
[2023-09-25] MEDS ORDERED: dexmedeTOMIDine (4MCG/ML)200MCG/50ML BTL (PRECEDEX) As Ordered ONE (11:31)
[2023-09-25] MEDS ORDERED: PHENYLephrine 500MCG 5ML (100MCG/ML) SYRINGE As Ordered ONE (11:38)
[2023-09-25] MEDS ORDERED: fentaNYL 100 MCG/2 ML INJECTION IV PRN (11:55)
[2023-09-25] MEDS ORDERED: METOCLOPRAMIDE INJ 10MG/2ML VIAL IV PRN (11:55)
[2023-09-25] MEDS ORDERED: oxyCODONE 5MG TAB PO PRN (11:55)
[2023-09-25] MEDS ORDERED: ONDANSETRON 4MG 2ML VIAL IV PRN (11:55)
[2023-09-25 12:58] VITALS: BP 110/68; TEMP 97.8; O2SAT 96
== END 2023-09-25 13:00 | disposition home or self-care (01) ==
LOC: M SDC 09:28
PROVIDERS: ATTEND Orthopaedic Surgery Hand Surgery
DX: G56.02 Carpal tunnel syndrome, left upper limb (principal); E11.9 Type 2 diabetes mellitus without complications; G47.30 Sleep apnea, unspecified; I10 Essential (primary) hypertension; F32.A Depression, unspecified; G43.909 Migraine, unspecified, not intractable, without status migrainosus; Z79.899 Other long term (current) drug therapy; Z79.85 Long-term (current) use of injectable non-insulin antidiabetic drugs; Z87.891 Personal history of nicotine dependence; Z20.822 Contact with and (suspected) exposure to COVID-19
CPT/HCPCS: 29848; 81025; J0131; J0665; J1100; J1885; J2250; J2371; J2405; J2765; J3010

== ENCOUNTER → 2023-10-09 | Outpatient (REF) | payer OTHER ==
[2023-10-09 16:02] LABS: BLOOD UREA NITROGEN 16 MG/DL (9-23); CARBON DIOXIDE LEVEL 26 MMOL/L (20-31); CHLORIDE LEVEL 103 MMOL/L (98-107); CREATININE FOR GFR 0.85 MG/DL (0.55-1.30); GLOMERULAR FILTRATION RATE > 60.0 (>58); GLUCOSE, FASTING 180 MG/DL (60-100); POTASSIUM SERUM 3.5 MMOL/L (3.5-5.1); SODIUM LEVEL 140 MMOL/L (136-145)
[2023-10-09 16:03] LABS: VITAMIN B12 LEVEL > 2000 PG/ML (211-911)
[2023-10-09 20:04] LABS: HEMOGLOBIN A1c 6.1 % (4.0-6.0)
== END ==
LOC: M SFHCADAM 08:10
PROVIDERS: ATTEND Family Medicine
DX: E11.9 Type 2 diabetes mellitus without complications (principal); E87.6 Hypokalemia

== ENCOUNTER → 2023-10-10 | Outpatient (CLI) | payer OTHER | LOC: M ADAMS 09:00 | PROVIDERS: ATTEND Family Medicine | DX: Z28.21 Immunization not carried out because of patient refusal (principal); R07.89 Other chest pain ==

== ENCOUNTER → 2023-10-22 | Outpatient (REF) | payer OTHER | LOC: M LAB REF 20:39 | PROVIDERS: ATTEND Physician Assistant | DX: R30.0 Dysuria (principal) ==

== ENCOUNTER → 2024-01-14 | Outpatient (REF) | payer OTHER | LOC: M SFHCDERM 17:25 | PROVIDERS: ATTEND Physician Assistant | DX: L08.9 Local infection of the skin and subcutaneous tissue, unspecified (principal) ==

== ENCOUNTER → 2024-01-14 | Outpatient (REF) | payer OTHER | LOC: M SFHCDERM 11:12 | PROVIDERS: ATTEND Physician Assistant | DX: L08.9 Local infection of the skin and subcutaneous tissue, unspecified (principal) ==

== ENCOUNTER → 2024-02-04 | Outpatient (REF) | payer OTHER ==
[~2024-02-04] MED LIST changes: +ONDA-282 PO; -ONDA4TAB6 PO
[2024-02-04 13:48] LABS: HEMOGLOBIN A1c 5.3 % (4.0-6.0)
[2024-02-04 14:13] LABS: BLOOD UREA NITROGEN 12 MG/DL (9-23); CALCIUM LEVEL 9.2 MG/DL (8.5-10.1); CARBON DIOXIDE LEVEL 29 MMOL/L (20-31); CHLORIDE LEVEL 107 MMOL/L (98-107); CREATININE FOR GFR 0.97 MG/DL (0.55-1.30); GLOMERULAR FILTRATION RATE > 60.0 (>58); GLUCOSE, FASTING 104 MG/DL (60-100); POTASSIUM SERUM 2.9 MMOL/L (3.5-5.1); SODIUM LEVEL 141 MMOL/L (136-145)
== END ==
LOC: M SFHCADAM 08:30
PROVIDERS: ATTEND Family Medicine
DX: E11.9 Type 2 diabetes mellitus without complications (principal)

== ENCOUNTER → 2024-02-18 | Outpatient (REF) | payer OTHER ==
[2024-02-18 19:50] LABS: HEMATOCRIT 45.2 % (36.0-47.0); HEMOGLOBIN 15.2 g/dl (12.0-15.5); MEAN CORPUSCULAR HEMOGLOBIN 28.8 pg (27.0-33.0); MEAN CORPUSCULAR HGB CONC 33.6 g/dl (32.0-36.5); MEAN CORPUSCULAR VOLUME 85.8 fl (80.0-96.0); PLATELET COUNT, AUTOMATED 322 10^3/uL (150-450); RED BLOOD COUNT 5.27 10^6/uL (4.00-5.40); WHITE BLOOD COUNT 7.4 10^3/uL (4.0-10.0)
[2024-02-18 20:21] LABS: BLOOD UREA NITROGEN 15 MG/DL (9-23); CALCIUM LEVEL 9.7 MG/DL (8.5-10.1); CARBON DIOXIDE LEVEL 27 MMOL/L (20-31); CHLORIDE LEVEL 103 MMOL/L (98-107); CREATININE FOR GFR 0.91 MG/DL (0.55-1.30); GLOMERULAR FILTRATION RATE > 60.0 (>58); GLUCOSE, FASTING 88 MG/DL (60-100); IRON (FE) 48 UG/DL (50-170); PERCENT SATURATION 18.3 % (13.2-45.0); SODIUM LEVEL 138 MMOL/L (136-145); TOTAL IRON BINDING CAPACITY 262 UG/DL (250-425)
[2024-02-18 20:24] LABS: FERRITIN 169.3 NG/ML (7.3-270.7)
== END ==
LOC: M LAB REF 19:26
PROVIDERS: ATTEND Student in an Organized Health Care Education/Training Program
DX: R53.83 Other fatigue (principal); E87.6 Hypokalemia

== ENCOUNTER → 2024-02-20 | Outpatient (CLI) | payer OTHER | LOC: M ADAMS 14:45 | PROVIDERS: ATTEND Family Medicine | DX: R05.3 Chronic cough (principal) ==

== ENCOUNTER → 2024-03-04 | Outpatient (REF) | payer OTHER ==
[2024-03-04 14:03] LABS: BLOOD UREA NITROGEN 16 MG/DL (9-23); CALCIUM LEVEL 9.3 MG/DL (8.5-10.1); CARBON DIOXIDE LEVEL 26 MMOL/L (20-31); CHLORIDE LEVEL 108 MMOL/L (98-107); CREATININE FOR GFR 0.94 MG/DL (0.55-1.30); GLOMERULAR FILTRATION RATE > 60.0 (>58); GLUCOSE, FASTING 125 MG/DL (60-100); MAGNESIUM LEVEL 2.1 MG/DL (1.8-2.4); POTASSIUM SERUM 3.9 MMOL/L (3.5-5.1); SODIUM LEVEL 142 MMOL/L (136-145)
== END ==
LOC: M SFHCADAM 08:45
PROVIDERS: ATTEND Family Medicine
DX: E87.6 Hypokalemia (principal)

== ENCOUNTER → 2024-04-01 | Outpatient (REF) | payer OTHER ==
[2024-04-01 13:00] LABS: BLOOD UREA NITROGEN 12 MG/DL (9-23); CALCIUM LEVEL 9.2 MG/DL (8.5-10.1); CARBON DIOXIDE LEVEL 28 MMOL/L (20-31); CHLORIDE LEVEL 108 MMOL/L (98-107); CREATININE FOR GFR 0.88 MG/DL (0.55-1.30); GLOMERULAR FILTRATION RATE > 60.0 (>58); GLUCOSE, FASTING 81 MG/DL (60-100); MAGNESIUM LEVEL 1.9 MG/DL (1.8-2.4); POTASSIUM SERUM 3.4 MMOL/L (3.5-5.1); SODIUM LEVEL 143 MMOL/L (136-145)
== END ==
LOC: M SFHCADAM 08:41
PROVIDERS: ATTEND Family Medicine
DX: I10 Essential (primary) hypertension (principal); E87.6 Hypokalemia

== ENCOUNTER → 2024-06-03 | Outpatient (REF) | payer OTHER ==
[2024-06-03 13:53] LABS: BLOOD UREA NITROGEN 14 MG/DL (9-23); CALCIUM LEVEL 9.1 MG/DL (8.5-10.1); CARBON DIOXIDE LEVEL 26 MMOL/L (20-31); CHLORIDE LEVEL 106 MMOL/L (98-107); CREATININE FOR GFR 1.02 MG/DL (0.55-1.30); GLOMERULAR FILTRATION RATE > 60.0 (>58); GLUCOSE, FASTING 90 MG/DL (60-100); POTASSIUM SERUM 3.8 MMOL/L (3.5-5.1); SODIUM LEVEL 137 MMOL/L (136-145)
== END ==
LOC: M SFHCADAM 08:02
PROVIDERS: ATTEND Family Medicine
DX: E87.6 Hypokalemia (principal)

== ENCOUNTER → 2024-06-04 | Outpatient (REF) | payer OTHER ==
[2024-06-04 17:40] LABS: HEMATOCRIT 48.4 % (36.0-47.0); HEMOGLOBIN 15.5 g/dl (12.0-15.5); MEAN CORPUSCULAR HEMOGLOBIN 28.4 pg (27.0-33.0); MEAN CORPUSCULAR VOLUME 88.6 fl (80.0-96.0); PLATELET COUNT, AUTOMATED 309 10^3/uL (150-450); RED BLOOD COUNT 5.46 10^6/uL (4.00-5.40); WHITE BLOOD COUNT 4.9 10^3/uL (4.0-10.0)
[2024-06-04 18:14] LABS: FREE T4 1.24 NG/DL (0.89-1.76); THYROID STIMULATING HORMONE 2.711 uIU/ML (0.55-4.78)
[2024-06-04 18:15] LABS: FERRITIN 148.3 NG/ML (7.3-270.7)
[2024-06-04 18:16] LABS: FOLATE 19.87 NG/ML (>5.4); VITAMIN B12 LEVEL 665 PG/ML (211-911)
[2024-06-04 18:19] LABS: ALBUMIN 4.5 G/DL (3.2-5.2); ALKALINE PHOSPHATASE 67 U/L (46-116); ALT/SGPT 13 U/L (7.0-40); AST/SGOT 10 U/L (<34); BILIRUBIN,TOTAL 0.6 MG/DL (0.3-1.2); BLOOD UREA NITROGEN 10 MG/DL (9-23); CALCIUM LEVEL 10.2 MG/DL (8.5-10.1); CARBON DIOXIDE LEVEL 27 MMOL/L (20-31); CHLORIDE LEVEL 106 MMOL/L (98-107); CREATININE FOR GFR 0.97 MG/DL (0.55-1.30); GLOMERULAR FILTRATION RATE > 60.0 (>58); GLUCOSE, FASTING 66 MG/DL (60-100); POTASSIUM SERUM 3.9 MMOL/L (3.5-5.1); SODIUM LEVEL 138 MMOL/L (136-145); TOTAL PROTEIN 7.4 G/DL (5.7-8.2)
[2024-06-04 18:26] LABS: HEMOGLOBIN A1c 4.7 % (4.0-6.0)
== END ==
LOC: M SFHCADAM 12:33
PROVIDERS: ATTEND Family Medicine
DX: I10 Essential (primary) hypertension (principal); G43.009 Migraine without aura, not intractable, without status migrainosus; F32.1 Major depressive disorder, single episode, moderate; E11.9 Type 2 diabetes mellitus without complications; R41.3 Other amnesia; M85.80 Other specified disorders of bone density and structure, unspecified site

== ENCOUNTER → 2024-12-02 | Outpatient (REF) | payer BC ==
[2024-12-02 14:45] LABS: BASO % 0.9 % (0.0-1.0); EOS # 0.2 10^3/uL (0.0-0.5); EOS % 4.9 % (0.0-3.0); HEMATOCRIT 45.9 % (36.0-47.0); HEMOGLOBIN 14.8 g/dl (12.0-15.5); LYMPH # 0.9 10^3/uL (1.5-5.0); LYMPH % 21.7 % (24.0-44.0); MEAN CORPUSCULAR HEMOGLOBIN 28.3 pg (27.0-33.0); MEAN CORPUSCULAR HGB CONC 32.2 g/dl (32.0-36.5); MEAN CORPUSCULAR VOLUME 87.8 fl (80.0-96.0); MONO # 0.4 10^3/uL (0.0-0.8); MONO % 8.9 % (2.0-8.0); NEUTROPHILS # 2.7 10^3/uL (1.5-8.5); NEUTROPHILS % 63.1 % (36.0-66.0); PLATELET COUNT, AUTOMATED 261 10^3/uL (150-450); RED BLOOD COUNT 5.23 10^6/uL (4.00-5.40); WHITE BLOOD COUNT 4.3 10^3/uL (4.0-10.0)
[2024-12-02 14:47] LABS: ALKALINE PHOSPHATASE 50 U/L (35-104); ALT/SGPT < 9 U/L (7.0-40); AST/SGOT 11 U/L (<34); BILIRUBIN,TOTAL 0.7 MG/DL (0.3-1.2); BLOOD UREA NITROGEN 18 MG/DL (9-23); CARBON DIOXIDE LEVEL 26 MMOL/L (20-31); CHLORIDE LEVEL 104 MMOL/L (98-107); CHOLESTEROL LEVEL 178 MG/DL (<200); CHOLESTEROL RISK RATIO 3.28 (<5); CREATININE FOR GFR 1.02 MG/DL (0.55-1.30); GLOMERULAR FILTRATION RATE > 60.0 (>58); GLUCOSE, FASTING 77 MG/DL (60-100); HDL CHOLESTEROL 54.2 MG/DL (>40); LDL CHOLESTEROL 110.2 MG/DL (<100); MAGNESIUM LEVEL 1.9 MG/DL (1.8-2.4); NON-HDL-C 123.8 MG/DL; POTASSIUM SERUM 3.5 MMOL/L (3.5-5.1); SODIUM LEVEL 139 MMOL/L (136-145); THYROID STIMULATING HORMONE 1.801 uIU/ML (0.55-4.78); TOTAL 25(OH) VITAMIN D 30.8 NG/ML (20.0-100.0); TOTAL PROTEIN 6.6 G/DL (5.7-8.2); TRIGLYCERIDES LEVEL 68 MG/DL (<150)
[2024-12-02 14:48] LABS: FREE T4 1.07 NG/DL (0.89-1.76)
[2024-12-02 15:08] LABS: HEMOGLOBIN A1c 4.4 % (4.0-6.0)
== END ==
LOC: M SFHCADAM 08:06
PROVIDERS: ATTEND Family Medicine
DX: I10 Essential (primary) hypertension (principal); E11.9 Type 2 diabetes mellitus without complications; E55.9 Vitamin D deficiency, unspecified; E66.9 Obesity, unspecified; K21.9 Gastro-esophageal reflux disease without esophagitis; G43.009 Migraine without aura, not intractable, without status migrainosus

== ENCOUNTER → 2024-12-17 | Outpatient (CLI) | payer BC | LOC: M RAD 06:57 | PROVIDERS: ATTEND Physician Assistant Medical | DX: R22.1 Localized swelling, mass and lump, neck (principal) ==

== ENCOUNTER → 2024-12-31 | Outpatient (CLI) | payer BC | LOC: M PLAIMG 08:52 | PROVIDERS: ATTEND Internal Medicine Critical Care Medicine | DX: J45.20 Mild intermittent asthma, uncomplicated (principal) ==

== ENCOUNTER → 2025-01-12 | Outpatient (CLI) | payer BC ==
[~2025-01-12] MED LIST changes: +ISOVUE-370 76% 100ML VIAL As Ordered ONE
== END ==
LOC: M RAD 09:29
PROVIDERS: ATTEND Family Medicine
DX: R22.0 Localized swelling, mass and lump, head (principal)

== ENCOUNTER → 2025-03-31 | Outpatient (CLI) | payer BC ==
[~2025-03-31] MED LIST changes: +CYCL5TAB4 PO; -ISOVUE-370 76% 100ML VIAL As Ordered ONE; +TIRZ15PE; +ZYRTTAB8 PO
[2025-03-31 14:12] LABS: BASO # 0.1 10^3/uL (0.0-0.2); BASO % 1.1 % (0.0-1.0); EOS # 0.1 10^3/uL (0.0-0.5); EOS % 3.0 % (0.0-3.0); LYMPH # 1.3 10^3/uL (1.5-5.0); LYMPH % 29.7 % (24.0-44.0); MONO # 0.4 10^3/uL (0.0-0.8); MONO % 9.9 % (2.0-8.0); NEUTROPHILS # 2.4 10^3/uL (1.5-8.5); NEUTROPHILS % 56.1 % (36.0-66.0); PLATELET COUNT, AUTOMATED 272 10^3/uL (150-450)
[2025-03-31 14:20] LABS: ERYTHROCYTE SEDIMENTATION RATE 6 mm/hr (0-20)
[2025-03-31 14:29] LABS: RHEUMATOID FACTOR QUANT < 3.5 IU/ML (<14)
[2025-03-31 14:30] LABS: ALT/SGPT 16 U/L (7.0-40); AST/SGOT 17 U/L (<34); CALCIUM LEVEL 9.3 MG/DL (8.5-10.1); CARBON DIOXIDE LEVEL 31 MMOL/L (20-31); CHLORIDE LEVEL 99 MMOL/L (98-107); CREATININE FOR GFR 0.96 MG/DL (0.55-1.30); GLOMERULAR FILTRATION RATE 72.5 (>58); MAGNESIUM LEVEL 2.2 MG/DL (1.8-2.4); POTASSIUM SERUM 3.9 MMOL/L (3.5-5.1); SODIUM LEVEL 139 MMOL/L (136-145); VITAMIN B12 LEVEL 1440 PG/ML (211-911)
== END ==
LOC: M LABDRWAD 10:25
PROVIDERS: ATTEND Psychiatry & Neurology Neurology
DX: F09 Unspecified mental disorder due to known physiological condition (principal)

== ENCOUNTER → 2025-06-09 | Outpatient (REF) | payer BC ==
[2025-06-09 13:10] LABS: PLATELET COUNT, AUTOMATED 257 10^3/uL (150-450)
[2025-06-09 14:03] LABS: CREATININE, URINE 79.6 MG/DL; MALB URINE SIEMENS < 3.0 MG/L
[2025-06-09 14:49] LABS: ALT/SGPT 10.0 U/L (7.0-40); AST/SGOT 12.0 U/L (<34); CALCIUM LEVEL 9.4 MG/DL (8.5-10.1); CARBON DIOXIDE LEVEL 30.0 MMOL/L (20-31); CHLORIDE LEVEL 102.0 MMOL/L (98-107); CHOLESTEROL LEVEL 195.0 MG/DL (<200); CHOLESTEROL RISK RATIO 3.23 (<5); CREATININE FOR GFR 0.89 MG/DL (0.55-1.30); FREE T4 1.02 NG/DL (0.89-1.76); GLOMERULAR FILTRATION RATE 79.4 (>58); LDL CHOLESTEROL 118.3 MG/DL (<100); NON-HDL-C 134.7 MG/DL; POTASSIUM SERUM 4.5 MMOL/L (3.5-5.1); SODIUM LEVEL 140.0 MMOL/L (136-145); TRIGLYCERIDES LEVEL 82.0 MG/DL (<150)
[2025-06-09 16:42] LABS: ESTIMATED AVERAGE GLUCOSE 88.0 MG/DL (60-110)
== END ==
LOC: M SFHCADAM 09:22
PROVIDERS: ATTEND Family Medicine
DX: F32.1 Major depressive disorder, single episode, moderate (principal); K76.0 Fatty (change of) liver, not elsewhere classified; E78.5 Hyperlipidemia, unspecified; E11.9 Type 2 diabetes mellitus without complications; I71.21 Aneurysm of the ascending aorta, without rupture; I10 Essential (primary) hypertension

== ENCOUNTER → 2025-06-16 | Outpatient (CLI) | payer BC | LOC: M RAD 15:51 | PROVIDERS: ATTEND Otolaryngology | DX: R22.1 Localized swelling, mass and lump, neck (principal) ==